=== PATIENT | male | born 1970 | race Hispanic/Latino ===

== ENCOUNTER 2020-04-14 21:21 | Emergency (ER) | payer OTHER | END 2020-04-14 23:30 | disposition home or self-care (01) | LOC: EEVIPCON 21:21 → EDH 21:21 | DX: M54.2 Cervicalgia (principal); R07.89 Other chest pain; M79.18 Myalgia, other site; V49.09XA Driver injured in collision with other motor vehicles in nontraffic accident, initial encounter; Y93.89 Activity, other specified; Y92.89 Other specified places as the place of occurrence of the external cause; Y99.8 Other external cause status | CPT/HCPCS: 71045; 72125 ==